=== PATIENT | male | born 1975 | race Caucasian/White ===

== ENCOUNTER → 2019-03-02 | Outpatient (CLI) | payer OTHER ==
--- NOTE | 2019-03-02 11:46 | XR ---
EXAMINATION TYPE: XR hand complete LT DATE OF EXAM: 03/02/2019 COMPARISON: NONE HISTORY: Pain TECHNIQUE: Three views are submitted. FINDINGS: The osseous structures are intact. The joint spaces are preserved and there is no acute fracture or dislocation. IMPRESSION: 1. No definite acute fracture or dislocation if symptoms persist, follow-up study in 7 to 10 days wo uld be suggested
== END | disposition home or self-care (01) ==
LOC: RADXRMAIN 11:21
PROVIDERS: ATTEND Emergency Medicine
DX: S61.233A Puncture wound without foreign body of left middle finger without damage to nail, initial encounter (principal)

== ENCOUNTER → 2019-12-01 | Outpatient (CLI) | payer OTHER ==
--- NOTE | 2019-12-01 13:56 | XR ---
EXAMINATION TYPE: XR hand complete LT DATE OF EXAM: 12/01/2019 CLINICAL HISTORY: pain TECHNIQUE: Frontal, lateral and oblique images of the left hand are obtained. COMPARISON: None. FINDINGS: There is no acute fracture/dislocation evident. The joint spaces appear within normal limi ts. The overlying soft tissue appears unremarkable. IMPRESSION: There is no acute fracture or dislocation. ICD 10 NO FRACTURE, INITIAL EVALUATION
== END | disposition home or self-care (01) ==
LOC: RADXRMAIN 13:18
PROVIDERS: ATTEND Emergency Medicine
DX: S61.217A Laceration without foreign body of left little finger without damage to nail, initial encounter (principal); S61.211A Laceration without foreign body of left index finger without damage to nail, initial encounter

== ENCOUNTER → 2020-03-24 | Outpatient (CLI) | payer OTHER ==
--- NOTE | 2020-03-24 11:46 | US ---
EXAMINATION TYPE: US venous doppler duplex LE LT DATE OF EXAM: 03/24/2020 10:44 AM COMPARISON: NONE CLINICAL HISTORY: LLE L80.9 Phlebitis M25.562 Pain in LLE. SIDE PERFORMED: Left TECHNIQUE: The lower extremity deep venous system is examined utilizing real time linear array sonog maren with graded compression, doppler sonography and color-flow sonography. VESSELS IMAGED: External Iliac Vein (EIV) Common Femoral Vein Deep Femoral Vein Greater Saphenous Vein * Femoral Vein Popliteal Vein Small Saphenous Vein * Proximal Calf Veins (* superficial vessels) Left Leg: Negative for DVT IMPRESSION: 1. No diagnostic evidence of DVT as visualized.
== END | disposition home or self-care (01) ==
LOC: RADUSWWP 10:20
PROVIDERS: ATTEND Orthopaedic Surgery
DX: M25.562 Pain in left knee (principal); M17.12 Unilateral primary osteoarthritis, left knee; I80.9 Phlebitis and thrombophlebitis of unspecified site; Z98.890 Other specified postprocedural states

== ENCOUNTER → 2020-04-28 | Outpatient (CLI) | payer OTHER ==
[2020-04-28 09:44] LABS: Basophils # (A) 0.1 k/uL (0-0.2); Basophils % (A) 1 %; Eosinophils # (A) 0.1 k/uL (0-0.7); Eosinophils % (A) 1 %; HGB 16.7 gm/dL (13.0-17.5); Lymphocytes # (A) 3.2 k/uL (1.0-4.8); Lymphocytes % (A) 33 %; MCH 29.8 pg (25.0-35.0); MCHC 32.7 g/dL (31.0-37.0); Mean Platelet Volume 7.8; Monocytes # (A) 0.6 k/uL (0-1.0); Monocytes % (A) 6 %; Neutrophils # (A) 5.6 k/uL (1.3-7.7); Neutrophils % (A) 57 %; Platelet Count 236 k/uL (150-450); RDW 13.3 % (11.5-15.5); WBC 9.8 k/uL (3.8-10.6)
[2020-04-28 15:19] LABS: African American GFR (CKD) 120.8 (60.0-200.0); Albumin 4.4 g/dL (3.80-4.90); Albumin/Globulin Ratio 2.44 (1.60-3.17); Anion Gap 4.6 mmol/L (4.00-12.00); BUN/Creat Ratio 13.33 Ratio (12.00-20.00); Calcium 9.5 mg/dL (8.7-10.3); Carbon Dioxide 28.4 mmol/L (21.6-31.8); Chol/HDL Ratio 4.4; Globulin 1.8 g/dL (1.6-3.3); LDL Cholesterol,Calculated 93.2 mg/dL (0.0-131.0); Non-African American GFR(CKD) 104.2 (60.0-200.0); Potassium 4.7 mmol/L (3.5-5.5); Total Bilirubin 0.5 mg/dL (0.2-1.2); Total Protein 6.2 g/dL (6.2-8.2); VLDL Calculation 25.8 mg/dL (5.00-40.00)
== END | disposition home or self-care (01) ==
LOC: LABWHC1 08:14
PROVIDERS: ATTEND Family Medicine
DX: Z13.220 Encounter for screening for lipoid disorders (principal); Z13.228 Encounter for screening for other metabolic disorders; N40.0 Benign prostatic hyperplasia without lower urinary tract symptoms; K63.5 Polyp of colon; Z71.6 Tobacco abuse counseling
CPT/HCPCS: 36415; 80053; 80061; 82306; 82607; 84153; 84443; 85025